=== PATIENT | male | born 1930 | race Native Hawaiian/Other Pacific Islander ===

== ENCOUNTER 2016-12-29 22:30 | Outpatient (CLI) | payer OTHER, BC ==
[~2016-12-29 22:30] MED LIST: GLIM4TAB PO; METFORMIN500 M1 PO; PRILOSEC20 MG PO; ZOCOR80 MG PO
== END 2016-12-29 22:59 | disposition short-term general hospital (02) ==
LOC: AMB 22:30
DX: R55 Syncope and collapse (principal); I95.89 Other hypotension
CPT/HCPCS: A0425; A0427

== ENCOUNTER 2017-01-05 14:23 | Outpatient (CLI) | payer OTHER, BC | END 2017-01-05 19:06 | disposition home or self-care (01) | LOC: LAB 14:23 | DX: I50.9 Heart failure, unspecified (principal); Z79.01 Long term (current) use of anticoagulants; Z51.81 Encounter for therapeutic drug level monitoring | CPT/HCPCS: 85610 ==

== ENCOUNTER 2017-01-14 14:45 | Outpatient (CLI) | payer OTHER, BC | END 2017-01-14 15:45 | disposition home or self-care (01) | LOC: LAB 14:45 | DX: E11.9 Type 2 diabetes mellitus without complications (principal); N39.0 Urinary tract infection, site not specified | CPT/HCPCS: 81000; 87086; 87088 ==

== ENCOUNTER 2017-01-22 16:28 | Outpatient (CLI) | payer OTHER, BC | END 2017-01-22 17:30 | disposition home or self-care (01) | LOC: LAB 16:28 | DX: N39.0 Urinary tract infection, site not specified (principal) | CPT/HCPCS: 81000; 87086; 87088 ==

== ENCOUNTER 2017-02-02 10:36 | Outpatient (CLI) | payer OTHER, BC | END 2017-02-02 19:31 | disposition home or self-care (01) | LOC: LAB 10:36 | DX: N39.0 Urinary tract infection, site not specified (principal); C61 Malignant neoplasm of prostate; N40.0 Benign prostatic hyperplasia without lower urinary tract symptoms | CPT/HCPCS: 81000; 87088 ==

== ENCOUNTER 2017-03-06 18:40 | Outpatient (CLI) | payer OTHER, BC | END 2017-03-06 19:00 | disposition short-term general hospital (02) | LOC: AMB 18:40 | DX: E11.65 Type 2 diabetes mellitus with hyperglycemia (principal) | CPT/HCPCS: A0425; A0427 ==